=== PATIENT | female | born 1990 ===

== ENCOUNTER 2020-10-14 12:51 | Inpatient (IN) ==
[2020-10-14] MEDS ORDERED: Lactated Ringers 1000 ml BAG 1,000 ML IV ONE (13:56)
[2020-10-14] MEDS ORDERED: Buffered Lidocaine 1% SYRIN 1 ml INTRADERM ONE (13:56)
[2020-10-14] MEDS ORDERED: Sodium Citrate/Citric Acid LIQ 15 ML UDC PO ONE (13:56)
[2020-10-14] MEDS ORDERED: Lactated Ringers 1000 ml BAG 1,000 ML IV SCH ×2 (14:00→19:00)
[2020-10-14] MEDS ORDERED: ceFOXitin 2 GM IVPREMIX 2 GM/50 ML BAG IVPB ONE (14:00)
[2020-10-14 14:54] LABS: ABS Lymphocytes 1.5 10^3/ul (1.0-4.8); ABS Monocytes 0.9 10^3/ul (0-0.8); ABS Neutrophils 9.8 10^3/ul (1.5-7.7); Eosinophil % 0.1 %; Hematocrit 31 % (35-47); Lymphocyte % 12.3 %; Mean Corpuscular HGB Conc 32 g/dL (31-36); Mean Corpuscular Hemoglobin 25 pg (27-31); Mean Corpuscular Volume 78 fL (80-97); Mean Platelet Volume 8.1 fL (7.4-10.4); Nucleated Red Blood Cells % 0.1; Platelet Count 354 10^3/uL (150-450); Red Blood Count 4.03 10^6 /uL (3.70-4.87); Red Cell Distribution Width 16 % (10-15); White Blood Count 12.2 10^3/uL (3.5-10.8)
[2020-10-14] MEDS ORDERED: Morphine PF AMP (0.5MG/ML) 5 MG/10 ML AMP ONE (14:59)
[2020-10-14] MEDS ORDERED: Oxytocin 10 UNITS/ML 1 ML VIAL ONE (15:00)
[2020-10-14] MEDS ORDERED: Sterile Water for Inj 10 ML ONE (15:06)
[2020-10-14] MEDS ORDERED: EPHEDrine (Pressors) 50 MG/ML VIAL ONE (15:06)
[2020-10-14] MEDS ORDERED: Ondansetron 4 mg VIAL 2 MG/ML 2 ml VIAL ONE (15:06)
[2020-10-14] MEDS ORDERED: Phenylephrine 40 mcg/mL 10mL (400mcg) SYRINGE ONE (15:10)
[2020-10-14 15:45] LABS: Albumin 3.1 g/dL (3.2-5.2); Albumin/Globulin Ratio 0.9 (1-3); BUN/Creatinine Ratio 14.5 (8-20); Calcium 8.4 mg/dL (8.6-10.3); EGFR African American 137.7 (>60); EGFR Non-African American 113.8 (>60); Globulin 3.3 g/dL (2-4); Potassium 3.9 mmol/L (3.5-5.0); Total Bilirubin 0.3 mg/dL (0.2-1.0); Total Protein 6.4 g/dL (6.4-8.9)
[2020-10-14] MEDS ORDERED: Sodium Citrate/Citric Acid LIQ 15 ML UDC PO PRN (16:11)
[2020-10-14] MEDS ORDERED: DiMENhydriNATE IV 50 mg/ml 1 ml VIAL IV PUSH PRN (16:11)
[2020-10-14] MEDS ORDERED: Ondansetron 4 mg VIAL 2 MG/ML 2 ml VIAL IV PRN (16:11)
[2020-10-14] MEDS ORDERED: diPHENhydraMINE IV 50 MG/ML 1 ml VIAL (BENADRYL) IV PRN (16:11)
[2020-10-14] MEDS ORDERED: Naloxone 0.4 mg VIAL 0.4 mg/ml 1 ml VIAL IV PRN (16:11)
[2020-10-14] MEDS ORDERED: Acetaminophen IV 1 GM/100ML 1,000 MG/100 ML VIAL IVPB PRN (16:14)
[2020-10-14 17:44] LABS: Urine Benzodiazepine Screen None Detected (None Detect); Urine Cannabinoids Screen None Detected (None Detect); Urine Opiates Screen None Detected (None Detect)
[2020-10-14] MEDS ORDERED: Tetan/Diph/Pertus SYR(Tdap) 0.5 ML SYR(BOOSTRIX) use SYR contains LATEX IM ONE (18:03)
[2020-10-14] MEDS ORDERED: Witch Hazel PAD JAR TOPICAL PRN (18:03)
[2020-10-14] MEDS ORDERED: Glycerin ADULT 2.4 gm SUPP PR PRN (18:03)
[2020-10-14] MEDS ORDERED: Dibucaine 1% OINT 28.35 GM TUBE PR PRN (18:03)
[2020-10-14] MEDS ORDERED: Oxytocin in LR 20 UNITS/1,000 ML BAG IVPB SCH (19:00)
[2020-10-15 08:31] LABS: ABS Eosinophils 0.1 10^3/ul (0-0.6); ABS Monocytes 0.8 10^3/ul (0-0.8); ABS Neutrophils 11.1 10^3/ul (1.5-7.7); Eosinophil % 0.6 %; Hematocrit 24 % (35-47); Lymphocyte % 7.9 %; Mean Corpuscular HGB Conc 33 g/dL (31-36); Mean Corpuscular Hemoglobin 25 pg (27-31); Mean Corpuscular Volume 76 fL (80-97); Mean Platelet Volume 7.8 fL (7.4-10.4); Nucleated Red Blood Cells % 0.1; Platelet Count 292 10^3/uL (150-450); Red Blood Count 3.15 10^6 /uL (3.70-4.87); Red Cell Distribution Width 16 % (10-15); White Blood Count 13.1 10^3/uL (3.5-10.8)
[2020-10-17 08:22] VITALS: BP 125/75
== END 2020-10-17 16:31 | disposition home or self-care (01) | DRG 787 ==
LOC: MCHOBOUT 12:51 → MCHOB 13:51
PROVIDERS: ADMIT Obstetrics & Gynecology; ATTEND Obstetrics & Gynecology